=== PATIENT | male | born 1990 | race Caucasian/White ===

== ENCOUNTER → 2019-10-01 | Outpatient (CLI) | payer OTHER ==
--- NOTE | 2019-10-01 19:36 | RADIOLOGY REPORT (SQ) ---
EXAM DESCRIPTION: CT ABD/PELVIS WITH IV ORAL COMPLETED DATE/TIME: 10/01/2019 6:27 pm REASON FOR STUDY: UNSPECIFIED ABD PAIN (R10.9) R10.9 UNSPECIFIED ABDOMINAL PAIN COMPARISON: None. TECHNIQUE: CT scan of the abdomen and pelvis performed using helical scanning technique with dynamic intravenous contrast injection and oral contrast. Images reviewed with lung, soft tissue, and bone w indows. Reconstructed coronal and sagittal MPR images reviewed. Delayed images for evaluation of the urinary system also acquired. All images stored on PACS. All CT scanners at this facility use dose modulation, iterative reconstruction, and/or weight based d osing when appropriate to reduce radiation dose to as low as reasonably achievable (ALARA). [facility]: Dose Right [facility]: CareDose [facility]: Dose Right [facility]: Teradose 4D [facility]: [employer] CONTRAST TYPE AND DOSE: contrast/concentration: Isovue 350.00 mg/ml; Total Contrast Delivered: 100.0 ml; Total Saline Delivered: 65.5 ml RENAL FUNCTION: None required. The patient is less than 50 years old. RADIATION DOSE: CT Rad equipment meets quality standard of care and radiation dose reduction techniq ues were employed. CTDIvol: 14.2 - 14.3 mGy. DLP: 1556 mGy-cm.. LIMITATIONS: None. FINDINGS: LOWER CHEST: No significant findings. LIVER: Normal size. No enhancing masses. No dilated ducts. SPLEEN: Normal size. No focal lesions. PANCREAS: No masses identified. No significant calcifications. No adjacent inflammation or peripancre atic fluid collections. Pancreatic duct not dilated. GALLBLADDER: No calcified stones. No inflammatory changes to suggest cholecystitis. ADRENAL GLANDS: No significant masses. RIGHT KIDNEY AND URETER: No cysts identified. No solid masses identified. No calcified stones. No hyd ronephrosis or hydroureter. LEFT KIDNEY AND URETER: No cysts identified. No solid masses identified. No calcified stones. No hydr onephrosis or hydroureter. AORTA AND VESSELS: No aneurysm. No dissection. Renal arteries, SMA, celiac without significant stenos is. RETROPERITONEUM: No bulky retroperitoneal adenopathy. BOWEL AND PERITONEAL CAVITY: No obstruction. Mild colonic wall thickening. No free fluid. APPENDIX: Normal. PELVIS: No mass. No free fluid. Unremarkable bladder. ABDOMINAL WALL: No masses. No hernias. BONES: No acute findings. OTHER: No other significant finding. IMPRESSION: Mild colonic wall thickening. No free fluid. TECHNICAL DOCUMENTATION: JOB ID: [id number] [place]-[id number] Quality ID # [id number]: Final reports with documentation of one or more dose reduction techniques (e.g., Au tomated exposure control, adjustment of the mA and/or kV according to patient size, use of iterative reconstruction technique) 2010 [employer]- All Rights Reserved Reading location - IP/workstation name: [email or web address]
== END ==
LOC: RAD 15:14
PROVIDERS: ATTEND Nurse Practitioner
DX: R10.9 Unspecified abdominal pain (principal)
CPT/HCPCS: 74177